=== PATIENT | male | born 1940 | race Caucasian/White ===

== ENCOUNTER 2020-12-03 19:29 | Emergency (ER) | payer MEDICARE ==
--- NOTE | 2020-12-03 20:21 | EDM.PDOC ---
<JoeAgusto Nydia - Last Filed: 12/04/20 07:47> ED HPI GENERAL MEDICAL PROBLEM - General Chief Complaint: Cardiovascular Problem Stated Complaint: VOMITING/WEAKNESS Time Seen by Provider: 12/03/20 19:57 Source of Information: Reports: Patient History Limitations: Reports: No Limitations - History of Present Illness INITIAL COMMENTS - FREE TEXT/NARRATIVE: Mr. Chatterjee is a very pleasant 80-year-old gentleman who now presents the ED for lower extremity/generalized weakness. He states that he and his are visiting this area from [place], in order to attend a wedding. They are staying at a hotel. He states that around 15:45, he went to urinate, but felt too weak to stand, therefore sat on the toilet. Around 16:00 he tried to get up, but found himself too weak, and fell to the floor. He is uninjured, but he was too weak to get up on his own. His was shopping at the time, and did not return until around 18:30. She called EMS, who helped get the patient up and into her car, then the patient's drove him here to the ED. The patient expressly denies having recent chest pain, palpitations, dyspnea, fever, chills, constipation, diarrhea, or urinary symptoms. He states that he had some nausea yesterday, and vomited once last night, then again this morning, but he denies feeling nauseated at this time. He also reports having an occasional cough, which is normal for him. The patient denies having a prior similar symptoms, although he walks using 2 canes. He states that he does this because he has a "bad back" and that the canes allow him to "walk straight". He has not taken any medications since the onset of his symptoms. Here in the ED, the patient's initial BP is found to be elevated at 162/68, otherwise, he is hemodynamically stable, afebrile, saturating 95% on room air. I am told that he required significant assistance to get from a wheelchair onto the gurney. He appears to be comfortable, in no acute distress. He denies having any pain. Prior to this afternoon, the patient denies having a recent fever, chills, sore throat, ear pain, nasal or sinus congestion, cough, dyspnea, chest pain, palpitations, nausea, vomiting, constipation, diarrhea, abdominal pain, urinary symptoms, recent weight gain or weight loss, recent bloody bowel movements or black bowel movements, recent joint aches, headaches, or rashes. The patient and his are visiting this area from [place], [place]. He has received 2 COVID vaccinations. Back Pain Score (Numeric/FACES): 4 - Related Data Allergies Allergy/AdvReac Type Severity Reaction Status Date / Time No Known Allergies Allergy Verified 12/03/20 19:40 Home Meds: Home Meds Gabapentin [Neurontin] 300 mg PO BID 12/03/20 [History] Allopurinol [Zyloprim] 300 mg PO DAILY 12/04/20 [History] Aspirin [Aspirin EC] 162 mg PO DAILY 12/04/20 [History] Celecoxib 200 mg PO DAILY PRN 12/04/20 [History] Empagliflozin [Jardiance] 25 mg PO DAILY 12/04/20 [History] Glimepiride 2 mg PO DAILY 12/04/20 [History] Rosuvastatin [Crestor] 20 mg PO BEDTIME 12/04/20 [History] lisinopriL [Lisinopril] 20 mg PO DAILY 12/04/20 [History] sitaGLIPtin Phos/Metformin HCl [Janumet 50-1,000 MG] 50 - 1,000 mg PO DAILY 12/04/20 [History] Past Medical History HEENT History: Reports: Impaired Vision (wears glasses) Cardiovascular History: Reports: CAD, CT (2010) Musculoskeletal History: Reports: Gout (suspected) Endocrine/Metabolic History: Reports: Diabetes, Type II, Obesity/BMI 30+ - Past Surgical History HEENT Surgical History: Reports: Adenoidectomy, Oral Surgery (dental extractions), Tonsillectomy Cardiovascular Surgical History: Reports: Coronary Artery Stent (x 2010) GI Surgical History: Reports: Appendectomy Social & Family History - Tobacco Use Tobacco Use Status *Q: Never Tobacco User Second Hand Smoke Exposure: No - Caffeine Use Caffeine Use: Reports: Coffee - Alcohol Use Alcohol Use History: No - Recreational Drug Use Recreational Drug Use: No - Living Situation & Occupation Living situation: Reports: , with Spouse Occupation: Retired ED ROS GENERAL - Review of Systems Review Of Systems: Comprehensive ROS is negative, except as noted in HPI. ED EXAM, GENERAL - Physical Exam Exam: See Below Exam Limited By: No Limitations General Appearance: Alert, WD/WN, No Apparent Distress Eye Exam: Bilateral Eye: EOMI, Normal Inspection Ears: Normal External Exam, Hearing Grossly Normal Nose: Normal Inspection Throat/Mouth: Normal Inspection, Normal Lips, Normal Voice, No Airway Compromise Head: Atraumatic, Normocephalic Neck: Normal Inspection, Full Range of Motion Respiratory/Chest: No Respiratory Distress, Lungs Clear, Normal Breath Sounds, No Accessory Muscle Use Cardiovascular: Normal Peripheral Pulses, Regular Rate, Rhythm, No Edema, No Gallop, No JVD, No Murmur, No Rub Peripheral Pulses: 3+: Radial (L), Radial (R) GI/Abdominal: Normal Bowel Sounds, Soft, Non-Tender, No Organomegaly, No Distention, No Abnormal Bruit, No Mass Extremities: Normal Inspection, Normal Range of Motion, No Pedal Edema, Normal Capillary Refill Neurological: Alert, Oriented, CN II-XII Intact, Normal Cognition, Other (No focal weakness, however, patient requires significant assistance to get out of the wheelchair onto the gurney) Psychiatric: Normal Affect Skin Exam: Warm, Dry, Intact, Normal Color, No Rash #1 Interpretation EKG Date: 12/03/20 Time: 20:24 Rhythm: NSR Rate (Beats/Min): 90 Nicollet: Normal P-Wave: Present (1st degree AVB) QRS: Other (Late transition) ST-T: Normal QT: Normal Comparison: NA - No Prior EKG #2 Interpretation EKG Date: 12/04/20 Time: 00:22 Rhythm: NSR Rate (Beats/Min): 86 Nicollet: Normal (Borderline LAD) P-Wave: Present (1st degree AVB) QRS: Other (Late transition) ST-T: Normal QT: Normal Comparison: No Change (12/03/2020) Course - Re-Assessments/Exams Free Text/Narrative Re-Assessment/Exam: 12/03/20 20:19 The etiology of the patient's lower extremity weakness is not immediately known, but I suspect is due to spinal stenosis. An Accu-Chek, obtained at triage, was 196. A swab for the SARS-CoV-2 virus was also ordered at triage. I have ordered a work-up that includes numerous blood tests, a urinalysis, a portable chest x-ray, and an ECG. 12/03/20 21:48 Portable chest radiograph reviewed. There is slight malrotation to the left. There is cardiomegaly, but no pulmonary vascular congestion to suggest decompensated CHF. No pleural effusions seen on this AP view. No focal infiltrate. No pneumothorax. Formal read per the Radiologist pending. The patient's CBC is remarkable for thrombocytopenia of 142,000, and is otherwise unremarkable. His CMP is unremarkable. His magnesium level is within normal limits at 2.0. His TSH is within normal limits at 1.021. His CPK is within normal limits at 175. His CRP is significantly elevated at 6.0. His troponin is elevated at 0.090. His D-dimer is substantially elevated at 2.71. His urinalysis is remarkable for 3+ glucose and trace occult blood, and is otherwise unremarkable. His swab for the SARS-CoV-2 virus is negative. Based on the above, I have ordered a CT angiogram of the chest to evaluate for a PE, along with some IV fluid. 12/03/20 22:55 CT angiogram of the chest is read by Edmund as "No pulmonary embolism. No acute thoracic disease." 12/03/20 23:16 I have ordered a repeat troponin, to see if it is trending up or down. 12/04/20 00:12 The patient's repeat troponin has increased to 0.108. Based on the above, I have ordered a repeat ECG, and will start the patient on a heparin bolus and drip per non-STEMI protocol. He will also be given 324 mg of chewable aspirin. 12/04/20 01:12 Because the patient is too weak to stand on his own, and with his elevated troponin, he cannot be discharged. Case discussed with Radha at [facility] at 00:52. No beds are available at their facility, indeed, there are 9 patients in their ED waiting for beds. Case then discussed with Dr. Brennan, [employer] Supervisor on-call at [facility], at 01:01. He is not entirely convinced that the patient's elevated troponin is cardiac in etiology. He feels that it is safe to keep the patient at this facility until a bed becomes available either at [facility] or [facility]. He does not feel that it would be appropriate to fly the patient to a more distant facility. He recommended that we recheck a troponin in the morning. I will order one to be drawn at 06:00. 12/04/20 01:35 The above situation discussed with the patient and his (now present). 12/04/20 07:17 The patient's repeat troponin at 06:15 increased to 0.119. Notified by Desiree PRESTON that the patient's BP is 89/53. I ordered a 500 mL bolus of NS. The patient states that he feels "fine", his appearance is unchanged, and his physical examination is unchanged. 12/04/20 07:47 [facility] contacted at 07:29. They do not have any beds available. Case then discussed with Abilio at [facility] at 07:33. They do not have any beds available at this time, either, but expect to have some beds available later today. Case then discussed with Dr. Zavala, [employer] Supervisor at [facility], at 07:40. He agreed that the patient needs to have a work-up within 48 hours. He did not recommend any changes in our current management. Abilio will call us back once a bed becomes available. 12/04/20 07:[address] Zavala discussed with the patient. He is agreeable with being transferred to [place] once a bed becomes available. He does not want me to seek a further hospital where he would require transfer by air. Departure - Departure Disposition: DC/Tfer to [facility] 02 Clinical Impression: Elevated troponin Lower extremity weakness Qualifiers: Laterality: bilateral Qualified Code(s): R29.898 - Other symptoms and signs involving the musculoskeletal system - Discharge Information Referrals: PCP,Not In Area [Primary Care Provider] - Forms: ED Department Discharge <Ramiro Curry - Last Filed: 12/04/20 16:41> Course - Vital Signs Last Recorded V/S: Last Vital Signs Temp 97.4 F 12/04/20 09:52 Pulse 78 12/04/20 09:52 Resp 24 H 12/04/20 09:52 BP 103/57 L 12/04/20 09:52 Pulse Ox 98 12/04/20 09:52 - Orders/Labs/Meds Orders: Active Orders 24 hr Category Date Time Status Heparin Sodium/D5W [Heparin 25,000 Units in D5W 500 ML] Med 12/04/20 00:15 Active 25,000 units in 500 ml IV TITRATE Sodium Chloride 0.9% [Normal Saline] 1,000 ml Med 12/03/20 22:00 Active IV ASDIRECTED Sodium Chloride 0.9% [Normal Saline] 100 ml Med 12/03/20 22:00 Active IV ASDIRECTED Medication Orders Sodium Chloride (Normal Saline) 1,000 mls @ 100 mls/hr IV ASDIRECTED MAYUR Last Admin: 12/03/20 22:15 Dose: 100 mls/hr Documented by: SAVANNAH Sodium Chloride (Normal Saline) 100 mls @ 65 mls/min IV ASDIRECTED MAYUR Last Admin: 12/03/20 22:38 Dose: 65 mls/min Documented by: REX Heparin Sodium/Dextrose (Heparin 25,000 Units In D5w 500 Ml) 25,000 units in 500 mls @ 20 mls/hr IV TITRATE MAYUR; Protocol Last Titration: 12/04/20 07:05 Dose: 1,200 units/hr, 24 mls/hr Documented by: MIGUEL Cosigned by: LENORA Admin: 12/04/20 00:29 Dose: 1,000 units/hr, 20 mls/hr Documented by: LENORA Cosigned by: JESSICA Labs: Laboratory Tests 12/03/20 12/03/20 12/03/20 Range/Units 19:46 19:51 20:18 WBC (4.23-9.07) K/mm3 RBC (4.63-6.08) M/mm3 Hgb (13.7-17.5) gm/dl Hct (40.1-51.0) % MCV (79.0-92.2) fl MCH (25.7-32.2) pg MCHC (32.2-35.5) g/dl RDW Std Deviation (35.1-43.9) fL Plt Count (163-337) K/mm3 MPV (9.4-12.3) fl Neutrophils % (Manual) (40-60) % Band Neutrophils % (0-10) % Lymphocytes % (Manual) (20-40) % Atypical Lymphs % % Monocytes % (Manual) (2-10) % Eosinophils % (Manual) (0.8-7.0) % Basophils % (Manual) (0.2-1.2) Platelet Estimate Anisocytosis RBC Morph Comment APTT (21.7-31.4) SECONDS D-Dimer, Quantitative (0.19-0.50) mg/L Sodium (136-145) mEq/L Potassium (3.5-5.1) mEq/L Chloride (98-107) mEq/L Carbon Dioxide (21-32) mEq/L Anion Gap (5-15) BUN (7-18) mg/dL Creatinine (0.7-1.3) mg/dL Est Cr Clr Drug Dosing mL/min Estimated GFR (MDRD) (>60) mL/min BUN/Creatinine Ratio (14-18) Glucose (70-99) mg/dL POC Glucose 196 H (70-99) mg/dL Calcium (8.5-10.1) mg/dL Magnesium (1.8-2.4) mg/dL Total Bilirubin (0.2-1.0) mg/dL AST (15-37) U/L ALT (16-63) U/L Alkaline Phosphatase (46-116) U/L Creatine Kinase (39-308) U/L Troponin I (0.00-0.056) ng/mL C-Reactive Protein (<1.0) mg/dL Total Protein (6.4-8.2) g/dl Albumin (3.4-5.0) g/dl Globulin gm/dL Albumin/Globulin Ratio (1-2) TSH 3rd Generation (0.358-3.74) uIU/mL Urine Color Yellow (Yellow) Urine Appearance Clear (Clear) Urine pH 5.0 (5.0-8.0) Ur Specific Sumner 1.020 (1.005-1.030) Urine Protein Negative (Negative) Urine Glucose (UA) 3+ H (Negative) Urine Ketones Negative (Negative) Urine Occult Blood Trace-intact H (Negative) Urine Nitrite Negative (Negative) Urine Bilirubin Negative (Negative) Urine Urobilinogen 0.2 (0.2-1.0) Ur Leukocyte Esterase Negative (Negative) Urine RBC 0-5 (0-5) /hpf Urine WBC 0-5 (0-5) /hpf Ur Epithelial Cells Not seen (0-5) /hpf Urine Bacteria Few (FEW) /hpf Urine Mucus Few (FEW) /hpf SARS-CoV-2 RNA (SHENG) Negative (NEGATIVE) 12/03/20 12/03/20 12/03/20 Range/Units 20:33 20:33 20:33 WBC 8.98 (4.23-9.07) K/mm3 RBC 5.05 (4.63-6.08) M/mm3 Hgb 15.7 (13.7-17.5) gm/dl Hct 47.6 (40.1-51.0) % MCV 94.3 H (79.0-92.2) fl MCH 31.1 (25.7-32.2) pg MCHC 33.0 (32.2-35.5) g/dl RDW Std Deviation 51.4 H (35.1-43.9) fL Plt Count 142 L (163-337) K/mm3 MPV 11.1 (9.4-12.3) fl Neutrophils % (Manual) 86 H (40-60) % Band Neutrophils % 0 (0-10) % Lymphocytes % (Manual) 8 L (20-40) % Atypical Lymphs % 0 % Monocytes % (Manual) 6 (2-10) % Eosinophils % (Manual) 0 L (0.8-7.0) % Basophils % (Manual) 0 L (0.2-1.2) Platelet Estimate Decreased Anisocytosis 1+ slight RBC Morph Comment Abnormal APTT (21.7-31.4) SECONDS D-Dimer, Quantitative 2.71 H (0.19-0.50) mg/L Sodium 139 (136-145) mEq/L Potassium 3.6 (3.5-5.1) mEq/L Chloride 104 (98-107) mEq/L Carbon Dioxide 26 (21-32) mEq/L Anion Gap 12.6 (5-15) BUN 22 H (7-18) mg/dL Creatinine 1.3 (0.7-1.3) mg/dL Est Cr Clr Drug Dosing 48.27 mL/min Estimated GFR (MDRD) 53 (>60) mL/min BUN/Creatinine Ratio 16.9 (14-18) Glucose 142 H (70-99) mg/dL POC Glucose (70-99) mg/dL Calcium 8.7 (8.5-10.1) mg/dL Magnesium 2.0 (1.8-2.4) mg/dL Total Bilirubin 0.6 (0.2-1.0) mg/dL AST 17 (15-37) U/L ALT 17 (16-63) U/L Alkaline Phosphatase 82 (46-116) U/L Creatine Kinase 175 (39-308) U/L Troponin I 0.090 H* (0.00-0.056) ng/mL C-Reactive Protein 6.0 H* (<1.0) mg/dL Total Protein 7.0 (6.4-8.2) g/dl Albumin 3.4 (3.4-5.0) g/dl Globulin 3.6 gm/dL Albumin/Globulin Ratio 0.9 L (1-2) TSH 3rd Generation 1.021 (0.358-3.74) uIU/mL Urine Color (Yellow) Urine Appearance (Clear) Urine pH (5.0-8.0) Ur Specific Sumner (1.005-1.030) Urine Protein (Negative) Urine Glucose (UA) (Negative) Urine Ketones (Negative) Urine Occult Blood (Negative) Urine Nitrite (Negative) Urine Bilirubin (Negative) Urine Urobilinogen (0.2-1.0) Ur Leukocyte Esterase (Negative) Urine RBC (0-5) /hpf Urine WBC (0-5) /hpf Ur Epithelial Cells (0-5) /hpf Urine Bacteria (FEW) /hpf Urine Mucus (FEW) /hpf SARS-CoV-2 RNA (SHENG) (NEGATIVE) 12/03/20 12/04/20 12/04/20 Range/Units 23:30 06:15 06:15 WBC (4.23-9.07) K/mm3 RBC (4.63-6.08) M/mm3 Hgb (13.7-17.5) gm/dl Hct (40.1-51.0) % MCV (79.0-92.2) fl MCH (25.7-32.2) pg MCHC (32.2-35.5) g/dl RDW Std Deviation (35.1-43.9) fL Plt Count (163-337) K/mm3 MPV (9.4-12.3) fl Neutrophils % (Manual) (40-60) % Band Neutrophils % (0-10) % Lymphocytes % (Manual) (20-40) % Atypical Lymphs % % Monocytes % (Manual) (2-10) % Eosinophils % (Manual) (0.8-7.0) % Basophils % (Manual) (0.2-1.2) Platelet Estimate Anisocytosis RBC Morph Comment APTT 47.5 H (21.7-31.4) SECONDS D-Dimer, Quantitative (0.19-0.50) mg/L Sodium (136-145) mEq/L Potassium (3.5-5.1) mEq/L Chloride (98-107) mEq/L Carbon Dioxide (21-32) mEq/L Anion Gap (5-15) BUN (7-18) mg/dL Creatinine (0.7-1.3) mg/dL Est Cr Clr Drug Dosing mL/min Estimated GFR (MDRD) (>60) mL/min BUN/Creatinine Ratio (14-18) Glucose (70-99) mg/dL POC Glucose (70-99) mg/dL Calcium (8.5-10.1) mg/dL Magnesium (1.8-2.4) mg/dL Total Bilirubin (0.2-1.0) mg/dL AST (15-37) U/L ALT (16-63) U/L Alkaline Phosphatase (46-116) U/L Creatine Kinase (39-308) U/L Troponin I 0.108 H* 0.119 H* (0.00-0.056) ng/mL C-Reactive Protein (<1.0) mg/dL Total Protein (6.4-8.2) g/dl Albumin (3.4-5.0) g/dl Globulin gm/dL Albumin/Globulin Ratio (1-2) TSH 3rd Generation (0.358-3.74) uIU/mL Urine Color (Yellow) Urine Appearance (Clear) Urine pH (5.0-8.0) Ur Specific Sumner (1.005-1.030) Urine Protein (Negative) Urine Glucose (UA) (Negative) Urine Ketones (Negative) Urine Occult Blood (Negative) Urine Nitrite (Negative) Urine Bilirubin (Negative) Urine Urobilinogen (0.2-1.0) Ur Leukocyte Esterase (Negative) Urine RBC (0-5) /hpf Urine WBC (0-5) /hpf Ur Epithelial Cells (0-5) /hpf Urine Bacteria (FEW) /hpf Urine Mucus (FEW) /hpf SARS-CoV-2 RNA (SHENG) (NEGATIVE) 12/04/20 Range/Units 13:02 WBC (4.23-9.07) K/mm3 RBC (4.63-6.08) M/mm3 Hgb (13.7-17.5) gm/dl Hct (40.1-51.0) % MCV (79.0-92.2) fl MCH (25.7-32.2) pg MCHC (32.2-35.5) g/dl RDW Std Deviation (35.1-43.9) fL Plt Count (163-337) K/mm3 MPV (9.4-12.3) fl Neutrophils % (Manual) (40-60) % Band Neutrophils % (0-10) % Lymphocytes % (Manual) (20-40) % Atypical Lymphs % % Monocytes % (Manual) (2-10) % Eosinophils % (Manual) (0.8-7.0) % Basophils % (Manual) (0.2-1.2) Platelet Estimate Anisocytosis RBC Morph Comment APTT 55.2 H (21.7-31.4) SECONDS D-Dimer, Quantitative (0.19-0.50) mg/L Sodium (136-145) mEq/L Potassium (3.5-5.1) mEq/L Chloride (98-107) mEq/L Carbon Dioxide (21-32) mEq/L Anion Gap (5-15) BUN (7-18) mg/dL Creatinine (0.7-1.3) mg/dL Est Cr Clr Drug Dosing mL/min Estimated GFR (MDRD) (>60) mL/min BUN/Creatinine Ratio (14-18) Glucose (70-99) mg/dL POC Glucose (70-99) mg/dL Calcium (8.5-10.1) mg/dL Magnesium (1.8-2.4) mg/dL Total Bilirubin (0.2-1.0) mg/dL AST (15-37) U/L ALT (16-63) U/L Alkaline Phosphatase (46-116) U/L Creatine Kinase (39-308) U/L Troponin I (0.00-0.056) ng/mL C-Reactive Protein (<1.0) mg/dL Total Protein (6.4-8.2) g/dl Albumin (3.4-5.0) g/dl Globulin gm/dL Albumin/Globulin Ratio (1-2) TSH 3rd Generation (0.358-3.74) uIU/mL Urine Color (Yellow) Urine Appearance (Clear) Urine pH (5.0-8.0) Ur Specific Sumner (1.005-1.030) Urine Protein (Negative) Urine Glucose (UA) (Negative) Urine Ketones (Negative) Urine Occult Blood (Negative) Urine Nitrite (Negative) Urine Bilirubin (Negative) Urine Urobilinogen (0.2-1.0) Ur Leukocyte Esterase (Negative) Urine RBC (0-5) /hpf Urine WBC (0-5) /hpf Ur Epithelial Cells (0-5) /hpf Urine Bacteria (FEW) /hpf Urine Mucus (FEW) /hpf SARS-CoV-2 RNA (SHENG) (NEGATIVE) Meds: Medications Generic Name Dose Route Start Last Admin Trade Name Freq PRN Reason Stop Dose Admin Sodium Chloride 1,000 mls @ 100 mls/hr 12/03/20 22:00 12/03/20 22:15 Normal Saline IV 100 mls/hr ASDIRECTED MAYUR Administration Sodium Chloride 100 mls @ 65 mls/min 12/03/20 22:00 12/03/20 22:38 Normal Saline IV 65 mls/min ASDIRECTED MAYUR Administration Heparin Sodium/Dextrose 25,000 units in 500 mls @ 20 mls/hr 12/04/20 00:15 12/04/20 07:05 Heparin 25,000 Units In D5w 500 Ml IV 1,200 units/hr TITRATE MAYUR 24 mls/hr Titration Protocol 1,000 UNITS/HR Discontinued Medications Generic Name Dose Route Start Last Admin Trade Name Freq PRN Reason Stop Dose Admin Aspirin 324 mg 12/04/20 00:13 12/04/20 00:28 Aspirin 81 Mg Tab.Chew PO 12/04/20 00:14 324 mg ONETIME STA Administration Heparin Sodium (Porcine) 4,000 units 12/04/20 00:09 12/04/20 00:28 Heparin Sodium 5,000 Units/Ml Vial IVPUSH 12/04/20 00:10 4,000 units .BOLUS ONE Administration Sodium Chloride 500 mls @ 999 mls/hr 12/04/20 07:17 12/04/20 08:10 Normal Saline IV 12/04/20 07:47 Infused .BOLUS ONE Infusion Iopamidol 100 ml 12/03/20 21:56 12/03/20 22:38 Iopamidol 755 Mg/Ml 100 Ml Bottle IVPUSH 12/03/20 21:57 100 ml ONETIME ONE Administration Sodium Chloride 10 ml 12/03/20 21:56 12/03/20 22:39 Sodium Chloride 0.9% 10 Ml Sdv FLUSH 12/03/20 21:57 10 ml ONETIME ONE Administration - Re-Assessments/Exams Free Text/Narrative Re-Assessment/Exam: 12/04/20 16:[address] Diaz. [facility] called and they have a bed and I talked to Dr Rich the hospitalist pensions retirement plan specialist and he accepted the patient. He will be going by ambulance. Departure - Departure Time of Disposition: 16:40 Condition: Fair Sepsis Event Note (ED) - Focused Exam Vital Signs: Vital Signs Temp Pulse Resp BP Pulse Ox 12/04/20 09:52 97.4 F 78 24 H 103/57 L 98 12/04/20 09:00 78 20 100/55 L 95 12/04/20 07:57 80 24 H 92/53 L 95 12/04/20 07:11 96.9 F 78 22 H 99/44 L 95
[2020-12-03] MEDS ORDERED: Sodium Chloride 0.9% 10 ML SDV FLUSH ONE (21:56)
[2020-12-03] MEDS ORDERED: Iopamidol 755 Mg/ML 100 ML Bottle IVPUSH ONE (21:56)
[2020-12-03] MEDS ORDERED: Sodium Chloride 0.9% 100 ML IV SCH (22:00)
[2020-12-03] MEDS ORDERED: Sodium Chloride 0.9% 1,000 ML IV SCH (22:00)
[2020-12-04] MEDS ORDERED: Heparin Sodium 5,000 Units/ML Vial IVPUSH ONE (00:09)
[2020-12-04] MEDS ORDERED: Aspirin 81 MG Tab.Chew PO STA (00:13)
[2020-12-04] MEDS ORDERED: Heparin Sodium/D5W 25,000 UNITS/500 ML BAG IV SCH (00:15)
[2020-12-04] MEDS ORDERED: Sodium Chloride 0.9% 500 ML IV ONE (07:17)
--- NOTE | 2020-12-04 07:19 | CT ---
CT chest Technique: Multiple axial sections through the chest were obtained. Intravenous contrast was utilized. Study was performed as a pulmonary angiogram protocol. Comparison: No prior chest imaging is available. Findings: Pulmonary arteries are well opacified. No filling defects are seen to indicate pulmonary embolism. Thoracic aorta shows atherosclerotic calcification. Prominent coronary artery calcification is noted. No pericardial thickening is seen. Small mediastinal lymph nodes are seen which are felt to be within normal limits. No axillary adenopathy is appreciated. Lung window settings were reviewed. No acute parenchymal change is seen. No pleural effusion or pneumothorax is seen. Bone window settings were reviewed which show diffuse disc space narrowing and endplate spurring within the thoracic spine. No acute osseous abnormality is appreciated. Impression: 1. No findings of pulmonary embolism are seen. 2. No acute abnormality is appreciated. Diagnostic code #2 I agree with preliminary report from [facility], finalized on 12/03/20, 11:52 PM CDT, code 1
--- NOTE | 2020-12-04 07:22 | CR ---
Chest: Portable view of the chest was obtained. Comparison: No previous chest x-ray is available, subsequent chest CT is available. Slight density is noted within the right lung base correlating to mild increased density on subsequent chest x-ray which is most likely due to atelectasis. Lungs otherwise are clear. Heart is mildly enlarged. Bony structures show degenerative change within both shoulders. No acute osseous abnormality is appreciated. Impression: 1. Probable atelectasis within the right lung base. 2. Heart size is slightly enlarged. 3. Degenerative change as noted above believed to be chronic. Diagnostic code #2
== END 2020-12-04 17:28 ==
LOC: JD.ED 19:29
DX: R53.1 Weakness (principal); R79.89 Other specified abnormal findings of blood chemistry; I44.0 Atrioventricular block, first degree; R79.82 Elevated C-reactive protein (CRP); I25.10 Atherosclerotic heart disease of native coronary artery without angina pectoris; I25.2 Old myocardial infarction; E11.9 Type 2 diabetes mellitus without complications; E66.9 Obesity, unspecified; Z68.30 Body mass index [BMI] 30.0-30.9, adult; Z79.82 Long term (current) use of aspirin; Z79.84 Long term (current) use of oral hypoglycemic drugs; Z79.899 Other long term (current) drug therapy; Z20.822 Contact with and (suspected) exposure to COVID-19
CPT/HCPCS: 36415; 71045; 71275; 80053; 81001; 82550; 82947; 83735; 84443; 84484; 85007; 85027; 85379; 85730; 86140; 93005; 96365; 96366; 99285; A9270; J1644; J7030; Q9967; U0002